=== PATIENT | female | born 1965 | race Caucasian/White ===

== ENCOUNTER → 2020-11-07 | Outpatient (CLI) | payer OTHER ==
[2020-11-07 07:34] LABS: HEMOGLOBIN 15.6 gm/dl (12.3-15.3); RED BLOOD COUNT 4.92 M/UL (4.00-5.10); WHITE BLOOD COUNT 8.2 K/UL (4.5-11.0)
[2020-11-07 07:50] LABS: BUN/CREATININE RATIO 19 (0-10)
[2020-11-08 12:15] LABS: THYROID PEROXIDASE (TPO) AB <9 IU/mL (0-34)
[2020-11-08 13:15] LABS: INSULIN 15.2 uIU/mL (2.6-24.9)
== END ==
LOC: LAB 06:45
PROVIDERS: Nurse Practitioner Family
DX: E11.65 Type 2 diabetes mellitus with hyperglycemia (principal); I10 Essential (primary) hypertension; E03.9 Hypothyroidism, unspecified; E78.5 Hyperlipidemia, unspecified; E55.9 Vitamin D deficiency, unspecified; J45.909 Unspecified asthma, uncomplicated; R63.5 Abnormal weight gain; K21.9 Gastro-esophageal reflux disease without esophagitis
CPT/HCPCS: 36415; 80053; 80061; 82652; 83036; 84443; 85027; 86376; 86800